=== PATIENT | female | born 1995 | race American Indian/Alaskan Native ===

== ENCOUNTER 2018-05-03 14:46 | Emergency (ER) | payer SELFPAY ==
[2018-05-03 15:03] VITALS: BP 121/74
--- NOTE | 2018-05-03 15:58 | Emergency Department Report ---
ED Rash HPI - HPI Chief Complaint: Skin Rash Stated Complaint: CHEST PAIN WITH PATCHES Time Seen by Provider: 05/03/18 15:50 ED Review of Systems ROS: Stated complaint: CHEST PAIN WITH PATCHES Other details as noted in HPI ED Past Medical Hx - Past Medical History Previous Medical History?: Yes Additional medical history: Nasal pimples - Surgical History Past Surgical History?: No - Social History Smoking Status: Never Smoker Substance Use Type: Alcohol Rash Exam - Exam General: Vital signs noted. No distress. Alert and acting appropriately. ED Course Vital Signs 05/03/18 14:56 Temperature 98.8 F Pulse Rate 83 Respiratory 20 Rate Blood Pressure 121/74 O2 Sat by Pulse 100 Oximetry Critical care attestation.: If time is entered above; I have spent that time in minutes in the direct care of this critically ill patient, excluding procedure time. ED Disposition Condition: Stable
--- NOTE | 2018-05-03 17:58 | Emergency Department Report ---
ED General Adult HPI - General Chief complaint: Skin Rash Stated complaint: CHEST PAIN WITH PATCHES Time Seen by Provider: 05/03/18 15:50 Source: patient Mode of arrival: Ambulatory Limitations: No Limitations - History of Present Illness Initial comments: This is a 23-year-old female here reports that she is having patches on her skin and she's been put in antibiotic ointment on it and its getting better. She said it started a couple weeks ago. She says she went to [place] a month ago but rash started before she went to [place]. She said they're getting better. Denies any itching. She also reported that she had a real bad cold with congestion a month ago and she has not to the left side of the back of her neck. And she was wondering what they were. She reports that she has chest pain on and off and she got up this morning she had chest pain. Patient denies any shortness of breath. Denies any nausea or vomiting. Denies any abdominal or back pain. Denies any urinary pain and frequency urgency. Last menstrual period was 04/19/2018. Patient is not concerned for STD or . Denies any vaginal discharge. Pain was 6 other tenderness morning and episodic. No pain at present. Pain was located to her mid chest and she denies any trauma. Denies any history of blood clot or family history of blood clot. Denies being on control pills. Denies any swelling to legs. Denies any recent convalescent period. Denies any history of cancer or family history and personal history of clotting disorders. MD Complaint: rash, not tobacco neck, chest pain Onset/Timin -: week(s) Location: chest (no chest pain at present. Rash located to chest and upper back ) Severity scale (0 -10): 0 Associated Symptoms: chest pain, cough, rash, other (congestion). denies: confusion, diaphoresis, fever/chills, headaches, loss of appetite, malaise, nausea/vomiting, seizure, shortness of breath, syncope, weakness Treatments Prior to Arrival: other ( ointment for rash) - Related Data Previous Rx's Medication Instructions Recorded Last Taken Type Amoxicillin [Amoxicillin TAB] 875 mg PO BID 7 Days #14 tablet 05/03/18 Unknown Rx Cetirizine HCl [Zyrtec] 10 mg PO QAM 14 Days #14 tablet 05/03/18 Unknown Rx Fluticasone [Flonase] 1 spray NS QDAY 14 Days #1 bottle 05/03/18 Unknown Rx Allergies Allergy/AdvReac Type Severity Reaction Status Date / Time No Known Allergies Allergy Unverified 05/03/18 14:55 ED Review of Systems ROS: Stated complaint: CHEST PAIN WITH PATCHES Other details as noted in HPI Constitutional: denies: chills, fever Eyes: denies: eye pain, eye discharge, vision change ENT: congestion. denies: ear pain, throat pain, epistaxis Respiratory: cough. denies: shortness of breath, SOB with exertion, SOB at rest , stridor, wheezing Cardiovascular: chest pain. denies: palpitations, dyspnea on exertion, edema, syncope Gastrointestinal: denies: abdominal pain, nausea, vomiting, diarrhea, constipation, hematemesis, hematochezia Genitourinary: denies: urgency, dysuria, discharge Musculoskeletal: denies: back pain, joint swelling, arthralgia Skin: rash. denies: lesions, pruritus Neurological: denies: headache, weakness, numbness, paresthesias, abnormal gait , vertigo Hematological/Lymphatic: swollen glands ED Past Medical Hx - Past Medical History Previous Medical History?: Yes Additional medical history: Nasal pimples - Surgical History Past Surgical History?: No - Family History Family history: no significant - Social History Smoking Status: Never Smoker Substance Use Type: Alcohol - Medications Home Medications: Home Medications Medication Instructions Recorded Confirmed Last Taken Type Amoxicillin [Amoxicillin TAB] 875 mg PO BID 7 Days #14 tablet 05/03/18 Unknown Rx Cetirizine HCl [Zyrtec] 10 mg PO QAM 14 Days #14 tablet 05/03/18 Unknown Rx Fluticasone [Flonase] 1 spray NS QDAY 14 Days #1 bottle 05/03/18 Unknown Rx ED Physical Exam - General Limitations: No Limitations General appearance: alert, in no apparent distress - Head Head exam: Present: atraumatic, normocephalic, normal inspection - Eye Eye exam: Present: normal appearance, PERRL, EOMI Pupils: Present: normal accommodation - ENT ENT exam: Present: normal orophraynx, mucous membranes moist, normal external ear exam, other (lateral nasal mucosa pale boggy and clear drainage. Maxillary and frontal sinuses nontender to palpate). Absent: TM's normal bilaterally ( bilateral TM congested without erythema) - Neck Neck exam: Present: normal inspection, full ROM, lymphadenopathy (left posterior cervical, isolated lymph node with tenderness to palpate.), other (no C-spine tenderness). Absent: tenderness, thyromegaly - Respiratory Respiratory exam: Present: normal lung sounds bilaterally. Absent: respiratory distress, wheezes, rales, rhonchi, stridor, chest wall tenderness, accessory muscle use, decreased breath sounds, prolonged expiratory - Cardiovascular Cardiovascular Exam: Present: regular rate, normal rhythm, normal heart sounds. Absent: systolic murmur, diastolic murmur - GI/Abdominal GI/Abdominal exam: Present: soft, normal bowel sounds. Absent: distended, tenderness, guarding, rebound, rigid, organomegaly, mass, bruit, pulsatile mass , hernia - Extremities Exam Extremities exam: Present: normal inspection, full ROM, normal capillary refill , other (no clubbing, cyanosis or edema. +2 pulses or extremities and no neurovascular compromise). Absent: tenderness, pedal edema, joint swelling, calf tenderness - Back Exam Back exam: Present: normal inspection, full ROM, other (ambulates without any difficulties). Absent: tenderness, CVA tenderness (R), CVA tenderness (L), muscle spasm, paraspinal tenderness, vertebral tenderness, rash noted - Neurological Exam Neurological exam: Present: alert, oriented X3, normal gait - Psychiatric Psychiatric exam: Present: normal affect, normal mood - Skin Skin exam: Present: warm, dry, intact, rash (noted sparsely scattered hypo- pigmented area to chest and back. No signs of cellulitis and nontender to palpate.) ED Course Vital Signs 05/03/18 14:56 Temperature 98.8 F Pulse Rate 83 Respiratory 20 Rate Blood Pressure 121/74 O2 Sat by Pulse 100 Oximetry - Reevaluation(s) Reevaluation #1: 05/03/18 20:29 Patient stable throughout ED course. No chest pain and emergency room. ED Medical Decision Making - Lab Data Result diagrams: 05/03/18 18:29 Lab Results 05/03/18 05/03/18 Range/Units 18:29 18:29 WBC 8.3 (4.5-11.0) K/mm3 RBC 4.71 (3.65-5.03) M/mm3 Hgb 14.2 (10.1-14.3) gm/dl Hct 43.1 H (30.3-42.9) % MCV 92 (79-97) fl MCH 30 (28-32) pg MCHC 33 (30-34) % RDW 13.9 (13.2-15.2) % Plt Count 244 (140-440) K/mm3 Lymph % (Auto) 36.9 H (13.4-35.0) % Humphreys % (Auto) 6.0 (0.0-7.3) % Eos % (Auto) 1.1 (0.0-4.3) % Baso % (Auto) 0.3 (0.0-1.8) % Lymph # 3.1 (1.2-5.4) K/mm3 Humphreys # 0.5 (0.0-0.8) K/mm3 Eos # 0.1 (0.0-0.4) K/mm3 Baso # 0.0 (0.0-0.1) K/mm3 Seg Neutrophils % 55.7 (40.0-70.0) % Seg Neutrophils # 4.6 (1.8-7.7) K/mm3 D-Dimer 227.36 (0-234) ng/mlDDU - EKG Data -: EKG Interpreted by Me (interpreted by Dr. Stacy Navarro) EKG shows normal: sinus rhythm Rate: normal (87 beats per minutes) - EKG Data Interpretation: no acute changes, normal EKG - Radiology Data Radiology results: report reviewed Chest x-ray 2 views dictated by radiologist and report reviewed by myself. See below for details. Patient: RICKY MCCOLLUM MR#: [id number] : 1995 Acct:[id number] Age/Sex: 23 / F ADM Date: 05/03/18 Loc: ED Attending Dr: Ordering Physician: NBA FLORES Date of Service: 05/03/18 Procedure(s): XR chest routine 2V Accession Number(s): [id number] cc: NBA FLORES Fluoro Time In Minutes: FINAL REPORT EXAM: XR CHEST ROUTINE 2V HISTORY: cough x 1 month TECHNIQUE: Two view chest PA and lateral PRIORS: None. FINDINGS: Cardiac and mediastinal contours are unremarkable. No focal pulmonary infiltrate is identified. No pleural fluid collection seen. Pulmonary vasculature is unremarkable. IMPRESSION: Negative two-view chest Transcribed By: VENESSA Dictated By: CABRERA DASH MD Electronically Authenticated By: CABRERA DASH MD Signed Date/Time: 05/03/181921 DD/ 21 TD/TT: 05/03/181921 - Medical Decision Making This is a 23-year-old female here multiple complaints. She is here to be examined. She does not have a primary care or ALTERATIONS SUPERVISOR at present but she does have access and requested to be referred. Patient was seen as homicidal. Her physical exam is normal except she has hypopigmented mental areas sparsely scattered to the skin surface that does not have any signs of infection. She has left posterior cervical adenitis with palpable, tender lymph node. URI with cough and congestion. Patient requested ALTERATIONS SUPERVISOR and she'll be referred to Dr. Rebecca Galarza. I'll also refer her to Dr. Daysi Reyes who is internal medicine and [facility] for primary care. I will refer her to plant health manager for hypopigmented area to his skin surface. EKG, CBC and d-dimer normal. This was explained to patient and she was understanding of results. No need for pain medication in emergency room if she did not have any chest pain or shortness of breath. A/P 1: Adenitis left posterior cervical-adenitis, will placed on amoxicillin and referral to PCP 2: URI with cough and congestion-will place her on Zyrtec and Flonase 3: Atypical skin rash-patient would hypopigmented areas that is sparsley scattered to anterior and posterior torso that is resolving. No need for medication but will refer to plant health manager 4: Atypical chest pain-resolved. D-dimer negative to rule out PE and EKG with sinus rhythm at 87 bpm. Patient had chest pain this morning but she did not have any chest pain in emergency room. Will referred to escrow clerk Pt Educated on diagnoses, labs, EKG findings, chest x-ray findings, medication and need to follow-up. Patient discharged home in stable condition. Her vital signs are stable and she is nontoxic in appearance. She says she is feeling better after she got her results. She is nontoxic in appearance. I discussed with her she needs to follow up with primary care physician, plant health manager and escrow clerk and she voiced understanding. I also discussed with her that if her symptoms return and she feels worse to return to emergency room. Discharged home a prescription for amoxicillin, Zyrtec and Flonase. - Differential Diagnosis atypical chest pain, PE, costochondritis, bacterial v viral infection ,URI Critical care attestation.: If time is entered above; I have spent that time in minutes in the direct care of this critically ill patient, excluding procedure time. ED Disposition Clinical Impression: Hypopigmented skin lesion, URI with cough and congestion, Atypical chest pain, Cervical adenitis Disposition: TO HOME OR SELFCARE Is pt being admited?: No Does the pt Need Aspirin: No Condition: Stable Instructions: Chest Pain (ED), Adenitis (ED), Upper Respiratory Infection (ED) , Acute Rash (ED) Additional Instructions: Please see referral for primary care, plant health manager and escrow clerk. Call tomorrow to schedule an appointment for follow-up visit Take medication as prescribed. Zyrtec and Flonase is for upper respiratory infection Amoxicillin is for inflammation of lymph nodes. Increase your fluid intake Return to emergency room, if symptoms worsen or returns. Prescriptions: Amoxicillin [Amoxicillin TAB] 875 mg PO BID 7 Days #14 tablet Cetirizine HCl [Zyrtec] 10 mg PO QAM 14 Days #14 tablet Fluticasone [Flonase] 1 spray NS QDAY 14 Days #1 bottle Referrals: SHIRLEY REYES MD [Staff Physician] - 05/07/18 CHRISTOFER HALLMAN MD [Staff Physician] - 05/07/18 MARLEEN HERNANDEZ MD [Staff Physician] - 05/07/18
--- NOTE | 2018-05-03 19:26 | XRay Report ---
FINAL REPORT EXAM: XR CHEST ROUTINE 2V HISTORY: cough x 1 month TECHNIQUE: Two view chest PA and lateral PRIORS: None. FINDINGS: Cardiac and mediastinal contours are unremarkable. No focal pulmonary infiltrate is identified. No pleural fluid collection seen. Pulmonary vasculature is unremarkable. IMPRESSION: Negative two-view chest
[2018-05-03 19:47] LABS: Basophils % (Auto) 0.3 % (0.0-1.8); Eosinophils # (Auto) 0.1 K/mm3 (0.0-0.4); Eosinophils % (Auto) 1.1 % (0.0-4.3); Hematocrit 43.1 % (30.3-42.9); Hemoglobin 14.2 gm/dl (10.1-14.3); Lymphocytes # (Auto) 3.1 K/mm3 (1.2-5.4); Lymphocytes % (Auto) 36.9 % (13.4-35.0); Mean Corpuscular HGB Conc 33 % (30-34); Mean Corpuscular Hemoglobin 30 pg (28-32); Mean Corpuscular Volume 92 fl (79-97); Monocytes # (Auto) 0.5 K/mm3 (0.0-0.8); Platelet Count 244 K/mm3 (140-440); Red Blood Count 4.71 M/mm3 (3.65-5.03); Red Cell Distribution Width 13.9 % (13.2-15.2)
== END 2018-05-03 21:00 | disposition home or self-care (01) ==
LOC: ED 14:46
DX: L98.8 Other specified disorders of the skin and subcutaneous tissue (principal); L04.0 Acute lymphadenitis of face, head and neck; R07.89 Other chest pain; J06.9 Acute upper respiratory infection, unspecified
CPT/HCPCS: 36415; 71046; 85025; 85379; 93005; 93010